=== PATIENT | female | born 1985 | race Two or more races ===

== ENCOUNTER → 2024-12-09 | Outpatient (CLI) | payer MEDICAID, SELFPAY ==
--- NOTE | 2024-12-09 09:30 | XR_ITS ---
Examination: Transvaginal ultrasound of the pelvis, complete Technique: Transvaginal sonographic images pelvis performed using arthur scale imaging Exam date and time: December 09, 2024 1003 hours INDICATIONS: Vaginal discharge 8 years FINDINGS: Uterus 9.2 x 5.1 x 6.7 cm No uterine mass or intrauterine gestation Endometrial stripe 18 mm Right ovary 2.7 x 1.0 x 2.2 cm arterial flow small follicles Left ovary obscured by bowel gas Mild fluid in the cul-de-sac IMPRESSION: No uterine mass or intrauterine gestation.
== END | disposition home or self-care (01) ==
PROVIDERS: Referring Provider General Practice; Visit Provider General Practice
DX: N93.9 Abnormal uterine and vaginal bleeding, unspecified (principal)
CPT/HCPCS: 76830

== ENCOUNTER → 2025-01-30 | Outpatient (CLI) | payer MEDICAID, SELFPAY ==
--- NOTE | 2025-01-30 15:30 | XR_ITS ---
Examination: Breast ultrasound, unilateral, left Date and time of exam: January 30, 2025 1545 hours INDICATIONS: Mammogram 07/29/2024 12 mm oval circumscribed mass anterior lower breast Technique: Real-time arthur scale ultrasonographic imaging performed left breast including all 4 quadrants as well as nipple retroareolar and axillary region. Findings: 12:00 cyst 3 x 3 mm 2:00 oval mass irregular margins 9 x 6 mm 2:00 oval mass circumscribed 9 x 8 mm 2:00 circumscribed round mass 5 x 6 mm 11:00 cyst 4 x 4 millimeter IMPRESSION: BI-RADS Category 4: Suspicious for malignancy Suspicious nodule left breast 2:00 position, biopsy is needed to exclude breast carcinoma, this mass is amenable to ultrasound-guided breast biopsy for diagnosis
== END | disposition home or self-care (01) ==
LOC: CDIM 15:25
PROVIDERS: PCP Nurse Practitioner Family; Referring Provider Nurse Practitioner Family; Visit Provider Nurse Practitioner Family
DX: N63.21 Unspecified lump in the left breast, upper outer quadrant (principal)
CPT/HCPCS: 76641